=== PATIENT | female | born 1980 | race American Indian/Alaskan Native ===

== ENCOUNTER 2018-10-09 18:55 | Emergency (ER) | payer BC ==
[2018-10-09 19:25] VITALS: BP 146/56
--- NOTE | 2018-10-09 19:25 | Event Note ---
ED Screening Note Date of service: 10/09/18 Time: 19:24 ED Screening Note: headaches and nausea times yesterday. Feels like pressure and throbbing. This initial assessment/diagnostic orders/clinical plan/treatment(s) is/are subject to change based on patients health status, clinical progression and re- assessment by fellow clinical providers in the ED. Further treatment and workup at subsequent clinical providers discretion. Patient/guardian urged not to elope from the ED as their condition may be serious if not clinically assessed and managed. Initial orders include:
[2018-10-09] MEDS ORDERED: ZOFRAN ODT PO ONE (20:46)
[2018-10-09] MEDS ORDERED: TORADOL IM ONE (20:46)
[2018-10-09] MEDS ORDERED: FIORICET PO ONE (20:46)
[2018-10-09] MEDS ORDERED: AUGMENTIN 875 MG PO ONE (20:47)
--- NOTE | 2018-10-09 21:19 | Emergency Department Report ---
ED Headache HPI - General Chief Complaint: Headache Stated Complaint: NAUSEA/HEADACHES Time Seen by Provider: 10/09/18 19:24 Source: patient, family Exam Limitations: no limitations - History of Present Illness Initial Comments: Patient is a 19-wifm[place] female with a history of HTN, chronic headaches and recurrent sinus infections presents to the ED with acute onset was a sense of ear frontal pressure and headache with nausea and vomiting for the last 24 hours. Patient also complains of lightheadedness. Patient states that the pain is worse whenever she is ambulating or upright. Patient denies dizziness, chest pain, shortness of breath, fever, chills, sore throat, abdominal pain, change in vision, neck pain, cough, loss of consciousness or syncope and seizures. Timing/Duration: 24 hours, waxing and waning Quality: severe, pressure, sharp, throbbing Head Injury Location: frontal Recent Head Trauma: no recent headache/trauma Associated Symptoms: denies symptoms, facial pain, nausea/vomiting, nasal congestion, sinus infection. denies: confusion, fatigue, fever/chills, flushing, loss of consciousness, nasal drainage, numbness in legs/feet, seizures, stiff neck, vision changes, weakness Allergies/Adverse Reactions: Allergies No Known Allergies Allergy (Unverified 10/09/18 19:22) Home Medications: Ambulatory Orders Amoxicillin/Potassium Clav [Augmentin 875-125 Tablet] 1 each PO Q12H #20 tablet 10/09/18 Butalb/Acetamin/Caff 50-325-40 [Fioricet 50-325-40] 1 tab PO Q6HR PRN #15 tab 10/09/18 Cetirizine HCl [Zyrtec 10mg tab] 10 mg PO DAILY #30 tablet 10/09/18 Ketorolac [Toradol] 10 mg PO Q6H PRN #20 tablet 10/09/18 Ondansetron [Zofran Odt] 4 mg PO Q8HR #15 tab.rapdis 10/09/18 ED Review of Systems ROS: Stated complaint: NAUSEA/HEADACHES Other details as noted in HPI Constitutional: denies: chills, fever Eyes: denies: eye pain, eye discharge, vision change ENT: congestion, other (frontal sinus pressure). denies: ear pain, throat pain Respiratory: no symptoms reported. denies: cough, orthopnea, shortness of breath, SOB with exertion, SOB at rest, wheezing Cardiovascular: denies: chest pain, palpitations Endocrine: no symptoms reported Gastrointestinal: nausea, vomiting. denies: abdominal pain, diarrhea Genitourinary: denies: urgency, dysuria, discharge Musculoskeletal: denies: back pain, joint swelling, arthralgia Skin: denies: rash, lesions Neurological: headache. denies: weakness, paresthesias Psychiatric: denies: anxiety, depression Hematological/Lymphatic: denies: easy bleeding, easy bruising ED Past Medical Hx - Past Medical History Previous Medical History?: Yes Hx Hypertension: Yes Additional medical history: fybromyalgia - Surgical History Hx Cholecystectomy: Yes Additional Surgical History: , breast reduction - Social History Smoking Status: Never Smoker Substance Use Type: None - Medications Home Medications: Home Medications Medication Instructions Recorded Confirmed Last Taken Type Amoxicillin/Potassium Clav 1 each PO Q12H #20 tablet 10/09/18 Unknown Rx [Augmentin 875-125 Tablet] Butalb/Acetamin/Caff 50-325-40 1 tab PO Q6HR PRN #15 tab 10/09/18 Unknown Rx [Fioricet 50-325-40] Cetirizine HCl [Zyrtec 10mg tab] 10 mg PO DAILY #30 tablet 10/09/18 Unknown Rx Ketorolac [Toradol] 10 mg PO Q6H PRN #20 tablet 10/09/18 Unknown Rx Ondansetron [Zofran Odt] 4 mg PO Q8HR #15 tab.rapdis 10/09/18 Unknown Rx ED Physical Exam - General Limitations: No Limitations General appearance: alert, in no apparent distress - Head Head exam: Present: atraumatic, normocephalic, normal inspection - Eye Eye exam: Present: normal appearance, PERRL, EOMI. Absent: scleral icterus, conjunctival injection, periorbital swelling, periorbital tenderness Pupils: Present: normal accommodation - ENT ENT exam: Present: normal exam, normal orophraynx, mucous membranes moist, TM's normal bilaterally, normal external ear exam, other (Frontal and maxillary sinus pressure and tenderness; grossly congested nasal passages) - Neck Neck exam: Present: normal inspection, full ROM. Absent: tenderness, meningismus, lymphadenopathy - Respiratory Respiratory exam: Present: normal lung sounds bilaterally. Absent: respiratory distress, wheezes, rales, rhonchi, chest wall tenderness, accessory muscle use, decreased breath sounds, prolonged expiratory - Cardiovascular Cardiovascular Exam: Present: regular rate, normal rhythm, normal heart sounds. Absent: systolic murmur, diastolic murmur, rubs, gallop - GI/Abdominal GI/Abdominal exam: Present: soft, normal bowel sounds. Absent: tenderness, guarding, rebound, hyperactive bowel sounds, hypoactive bowel sounds, organomegaly, pulsatile mass, hernia - Rectal Rectal exam: Present: deferred - Extremities Exam Extremities exam: Present: normal inspection, full ROM, normal capillary refill - Back Exam Back exam: Present: normal inspection, full ROM. Absent: tenderness, CVA tenderness (R), CVA tenderness (L), muscle spasm, paraspinal tenderness, vertebral tenderness - Neurological Exam Neurological exam: Present: alert, oriented X3, CN II-XII intact, normal gait, reflexes normal - Psychiatric Psychiatric exam: Present: normal affect, normal mood - Skin Skin exam: Present: warm, dry, intact, normal color. Absent: rash ED Course Vital Signs 10/09/18 10/09/18 19:22 21:05 Temperature 98.1 F Pulse Rate 83 Respiratory 18 16 Rate Blood Pressure 146/56 O2 Sat by Pulse 100 Oximetry - Reevaluation(s) Reevaluation #1: 10/09/18 21:28 This is a 38 year-old female who presented to the ED with persistent frontal sinus headache. In the ED, the patient is alert and oriented 3 and is not in distress. Patient was treated for headache and also given initial oral antibiotic for acute frontal and maxillary sinusitis. On reevaluation, patient's pain is well-controlled with medications, and was discharged home on medications and advised to follow-up with her primary care physician in 5-7 days for reevaluation. Patient was advised to return to the ED immediately if symptoms get worse. ED Medical Decision Making - Medical Decision Making This is a 38 year-old female who presented to the ED with persistent frontal sinus headache. In the ED, the patient is alert and oriented 3 and is not in distress. Patient was treated for headache and also given initial oral antibiotic for acute frontal and maxillary sinusitis. On reevaluation, patient's pain is well-controlled with medications, and was discharged home on medications and advised to follow-up with her primary care physician in 5-7 days for reevaluation. Patient was advised to return to the ED immediately if symptoms get worse. - Differential Diagnosis sinus headache, chronic sinusitis, migraine headache, acute URI Critical care attestation.: If time is entered above; I have spent that time in minutes in the direct care of this critically ill patient, excluding procedure time. ED Disposition Clinical Impression: Sinus headache, Acute recurrent maxillary sinusitis Chronic headache Qualifiers: Headache type: tension-type Intractability: not intractable Qualified Code(s): G44.229 - Chronic tension-type headache, not intractable Disposition: DC-01 TO HOME OR SELFCARE Is pt being admited?: No Does the pt Need Aspirin: No Condition: Stable Instructions: Acute Headache (ED), Acute Bacterial Rhinosinusitis (ED), Sinusitis (ED) Additional Instructions: Take medications with food, drink plenty of fluids and follow up with your primary care physician in 5-7 days for reevaluation. Return to the emergency department immediately for further evaluation if symptoms get worse. Prescriptions: Amoxicillin/Potassium Clav [Augmentin 875-125 Tablet] 1 each PO Q12H #20 tablet Butalb/Acetamin/Caff 50-325-40 [Fioricet 50-325-40] 1 tab PO Q6HR PRN #15 tab PRN Reason: Headache Ketorolac [Toradol] 10 mg PO Q6H PRN #20 tablet PRN Reason: Pain Ondansetron [Zofran Odt] 4 mg PO Q8HR #15 tab.rapdis Cetirizine HCl [Zyrtec 10mg tab] 10 mg PO DAILY #30 tablet Referrals: [facility] [Outside] - 3-5 Days Time of Disposition: 21:25 Print Language: MALAY
== END 2018-10-09 21:37 | disposition home or self-care (01) ==
LOC: ED 18:55
DX: J01.01 Acute recurrent maxillary sinusitis (principal); I10 Essential (primary) hypertension; Z79.899 Other long term (current) drug therapy; Z98.890 Other specified postprocedural states
CPT/HCPCS: 96372; 99282; J1885; Q0162

== ENCOUNTER 2018-10-12 22:12 | Emergency (ER) | payer BC ==
[2018-10-12 22:54] VITALS: BP 140/87
[2018-10-12] MEDS ORDERED: NORCO 5/325 PO ONE (23:54)
[2018-10-13] MEDS ORDERED: IBUPROFEN ONE (00:14)
[2018-10-13] MEDS ORDERED: XYLOCAINE 2% INFILTRATI ONE ×3 (00:14→00:18)
[2018-10-13] MEDS ORDERED: XYLOCAINE TOPICAL 4% TP ONE ×2 (00:19→00:21)
[2018-10-13] MEDS ORDERED: IBUPROFEN PO ONE (00:20)
--- NOTE | 2018-10-13 01:07 | Cat Scan Report ---
Head CT without intravenous contrast INDICATION: Headache COMPARISON: None FINDINGS: The ventricles are normal in size and position. No hemorrhage or extra-axial fluid collecti on. No edema or mass effect. No focal infarct seen. Portions of the sinuses visualized are clear. No skull fracture identified. IMPRESSION: Negative head CT Automated exposure control was utilized to diminish radiation dose Signer Name: Charles Coe MD Signed: 10/13/2018 1:02 AM Workstation Name: [id number]
--- NOTE | 2018-10-13 01:26 | Emergency Department Report ---
ED Headache HPI - General Chief Complaint: Headache Stated Complaint: HEADACHE, LT CHURCH PRESSURE, NAUSEA Time Seen by Provider: 10/12/18 23:53 - History of Present Illness Initial Comments: Patient return for continued headaches DynaCirc headaches 2 days ago treated with Fioricet and cetirizine Augmentin for sinusitis states final headache continues patient pending follow-up with neurology there is no fever no chills headache is 14 and left frontal symptoms are exacerbated by movement and activity symptoms are relieved by nothing . Patient nonadherent with medication regimen and follow-up advises that Fioricet is not working Timing/Duration: 1 week Quality: moderate Head Injury Location: frontal Recent Head Trauma: frequent headaches Modifying Factors: improves with: movement Associated Symptoms: sinus infection. denies: nausea/vomiting, nasal congestion, nasal drainage, numbness in legs/feet, stiff neck, vision changes, weakness Allergies/Adverse Reactions: Allergies No Known Allergies Allergy (Unverified 10/09/18 19:22) Home Medications: Ambulatory Orders Amoxicillin/Potassium Clav [Augmentin 875-125 Tablet] 1 each PO Q12H #20 tablet 10/09/18 Butalb/Acetamin/Caff 50-325-40 [Fioricet 50-325-40] 1 tab PO Q6HR PRN #15 tab 10/09/18 Ketorolac [Toradol] 10 mg PO Q6H PRN #20 tablet 10/09/18 Acetaminophen [Acetaminophen TAB] 1,000 mg PO Q6HR PRN #30 tablet 10/13/18 Metoclopramide [Reglan] 10 mg PO Q6H PRN #30 tablet 10/13/18 Oxymetazoline 0.05% [Vicks Sinex] 2 spray NS BID #1 bottle 10/13/18 diphenhydrAMINE [Benadryl CAP] 25 mg PO Q6HR PRN #30 capsule 10/13/18 ED Review of Systems ROS: Stated complaint: HEADACHE, LT CHURCH PRESSURE, NAUSEA Other details as noted in HPI Constitutional: denies: chills, fever Eyes: denies: eye pain, eye discharge, vision change ENT: congestion. denies: ear pain, throat pain, dental pain, hearing loss, epistaxis Respiratory: denies: cough, shortness of breath, wheezing Cardiovascular: denies: chest pain, palpitations Endocrine: no symptoms reported Gastrointestinal: as per HPI Genitourinary: denies: urgency, dysuria, discharge Musculoskeletal: denies: back pain, joint swelling, arthralgia Skin: denies: rash, lesions Neurological: headache. denies: weakness, numbness, paresthesias, confusion, abnormal gait, vertigo Psychiatric: denies: anxiety, depression Hematological/Lymphatic: denies: easy bleeding, easy bruising ED Past Medical Hx - Past Medical History Previous Medical History?: Yes Hx Hypertension: Yes Additional medical history: fybromyalgia - Surgical History Past Surgical History?: Yes Hx Cholecystectomy: Yes Additional Surgical History: , breast reduction - Social History Smoking Status: Never Smoker Substance Use Type: None - Medications Home Medications: Home Medications Medication Instructions Recorded Confirmed Last Taken Type Amoxicillin/Potassium Clav 1 each PO Q12H #20 tablet 10/09/18 Unknown Rx [Augmentin 875-125 Tablet] Butalb/Acetamin/Caff 50-325-40 1 tab PO Q6HR PRN #15 tab 10/09/18 Unknown Rx [Fioricet 50-325-40] Ketorolac [Toradol] 10 mg PO Q6H PRN #20 tablet 10/09/18 Unknown Rx Acetaminophen [Acetaminophen TAB] 1,000 mg PO Q6HR PRN #30 tablet 10/13/18 Unknown Rx Metoclopramide [Reglan] 10 mg PO Q6H PRN #30 tablet 10/13/18 Unknown Rx Oxymetazoline 0.05% [Vicks Sinex] 2 spray NS BID #1 bottle 10/13/18 Unknown Rx diphenhydrAMINE [Benadryl CAP] 25 mg PO Q6HR PRN #30 capsule 10/13/18 Unknown Rx ED Physical Exam - General Limitations: No Limitations General appearance: alert, in no apparent distress - Head Head exam: Present: normocephalic, normal inspection - Eye Eye exam: Present: normal appearance, PERRL, EOMI. Absent: conjunctival injection, nystagmus Pupils: Present: normal accommodation - ENT ENT exam: Present: normal orophraynx, mucous membranes moist, TM's normal bilaterally, normal external ear exam, other (bilat frontal sinus pain to palpation ) - Neck Neck exam: Present: normal inspection, full ROM. Absent: tenderness, meningismus, lymphadenopathy, thyromegaly - Respiratory Respiratory exam: Present: normal lung sounds bilaterally. Absent: respiratory distress, wheezes, stridor, chest wall tenderness - Cardiovascular Cardiovascular Exam: Present: regular rate, normal rhythm, normal heart sounds. Absent: systolic murmur, diastolic murmur, rubs, gallop - GI/Abdominal GI/Abdominal exam: Present: soft, normal bowel sounds. Absent: distended, tenderness, mass, hernia - Rectal Rectal exam: Present: deferred - Extremities Exam Extremities exam: Present: normal inspection, full ROM, normal capillary refill. Absent: tenderness, pedal edema, joint swelling, calf tenderness - Back Exam Back exam: Present: normal inspection, full ROM. Absent: tenderness, CVA tenderness (R), CVA tenderness (L), muscle spasm, paraspinal tenderness, verteb ral tenderness, rash noted - Neurological Exam Neurological exam: Present: alert, oriented X3, CN II-XII intact, normal gait, reflexes normal. Absent: motor sensory deficit - Expanded Neurological Exam Expanded Patient oriented to: Present: person, place, time Speech: Present: fluid speech Cranial nerves: EOM's Intact: Normal, Gag Reflex: Normal, Tongue Deviation: Normal, Nystagmus: Normal, Facial Sensation: Normal, Facial Palsy with Forehead Movement: Normal Cerebellar function: Finger to Nose: Normal, Heel to Robb: Normal, Romberg: Normal Upper motor neuron: Devonte Neglect: Normal, Pronator Drift: Normal, Babinski Sign: Normal, Sensory Extinction: Normal Motor strength exam: RUE: 5, LUE: 5, RLE: 5, LLE: 5 DTR: bicep (R): 2+, bicep (L): 2+, ankle (R): 2+, ankle (L): 2+ Best Eye Response (Eland): (4) open spontaneously Best Motor Response (Greg): (6) obeys commands Best Verbal Response (Greg): (5) oriented Greg Total: 15 - Psychiatric Psychiatric exam: Present: normal affect, normal mood - Skin Skin exam: Present: warm, dry, intact, normal color. Absent: rash ED Course Vital Signs 10/12/18 22:51 Temperature 98.5 F Pulse Rate 95 H Respiratory 14 Rate Blood Pressure 140/87 O2 Sat by Pulse 100 Oximetry ED Medical Decision Making - Radiology Data Radiology results: report reviewed, image reviewed Ordering Physician: TWYLA TRUJILLO NP Date of Service: 10/12/18 Procedure(s): CT head/brain wo con Accession Number(s): [id number] cc: TWYLA TRUJILLO NP Head CT without intravenous contrast INDICATION: Headache COMPARISON: None FINDINGS: The ventricles are normal in size and position. No hemorrhage or extra-axial fluid collection. No edema or mass effect. No focal infarct seen. Portions of the sinuses visualized are clear. No skull fracture identified. IMPRESSION: Negative head CT Automated exposure control was utilized to diminish radiation dose Signer Name: Charles Coe MD Signed: 10/13/2018 1:02 AM Workstation Name: [id number] Transcribed By: NANETTE Dictated By: Charles Coe MD Electronically Authenticated By: Charles Coe MD Signed Date/Time: 10/13/18101 DD/ TD/TT: - Medical Decision Making CT scan is normal this is a sinus headache and Afrin nasal spray Decadron by mouth Benadryl and Reglan patient will follow up with neurology in 2-3 days patient verbalized agreement and understanding of discharge plan DC'd home in stable condition at this time Critical care attestation.: If time is entered above; I have spent that time in minutes in the direct care of this critically ill patient, excluding procedure time. ED Disposition Clinical Impression: Headache Qualifiers: Headache type: unspecified Headache chronicity pattern: acute headache Intractability: intractable Qualified Code(s): R51 - Headache Disposition: DC-01 TO HOME OR SELFCARE Is pt being admited?: No Does the pt Need Aspirin: No Condition: Stable Instructions: Acute Headache (ED) Prescriptions: Acetaminophen [Acetaminophen TAB] 1,000 mg PO Q6HR PRN #30 tablet PRN Reason: Headache diphenhydrAMINE [Benadryl CAP] 25 mg PO Q6HR PRN #30 capsule PRN Reason: headache Metoclopramide [Reglan] 10 mg PO Q6H PRN #30 tablet PRN Reason: Headache Oxymetazoline 0.05% [Vicks Sinex] 2 spray NS BID #1 bottle Referrals: TYRELL TERAN MD [Referring] - 3-5 Days Forms: Work/School Release Form(ED) Time of Disposition: 01:34
== END 2018-10-13 02:00 | disposition home or self-care (01) ==
LOC: ED 22:12
DX: R51 Headache (principal); I10 Essential (primary) hypertension; Z90.49 Acquired absence of other specified parts of digestive tract; Z98.890 Other specified postprocedural states; Z79.899 Other long term (current) drug therapy
CPT/HCPCS: 70450; 99283

== ENCOUNTER 2018-12-26 14:29 | Emergency (ER) | payer BC ==
[2018-12-26 14:49] VITALS: BP 138/77
[2018-12-26] MEDS ORDERED: ASPIRIN PO ONE (14:50)
--- NOTE | 2018-12-26 14:52 | Event Note ---
ED Screening Note Date of service: 12/26/18 Time: 14:49 ED Screening Note: This is a 38 y.o. F. that presents to the ER with chest pain radiating to RUE since waking this morning. Reports pain as intermitting sharp pain. Denies fever, chills, cough, palpitations LMP 12/04/2018 This initial assessment/diagnostic orders/clinical plan/treatment(s) is/are subject to change based on patients health status, clinical progression and re- assessment by fellow clinical providers in the ED. Further treatment and workup at subsequent clinical providers discretion. Patient/guardian urged not to elope from the ED as their condition may be serious if not clinically assessed and managed. Initial orders include: Labs, ekg, & cxr
[2018-12-26 15:59] LABS: Basophils % (Auto) 0.7 % (0.0-1.8); Eosinophils # (Auto) 0.2 K/mm3 (0.0-0.4); Hematocrit 36.2 % (30.3-42.9); Hemoglobin 11.8 gm/dl (10.1-14.3); Lymphocytes # (Auto) 2.5 K/mm3 (1.2-5.4); Lymphocytes % (Auto) 39.4 % (13.4-35.0); Mean Corpuscular HGB Conc 33 % (30-34); Mean Corpuscular Volume 90 fl (79-97); Monocytes # (Auto) 0.4 K/mm3 (0.0-0.8); Platelet Count 382 K/mm3 (140-440); Red Blood Count 4.03 M/mm3 (3.65-5.03); Red Cell Distribution Width 14.9 % (13.2-15.2)
--- NOTE | 2018-12-26 16:12 | XRay Report ---
CHEST 2 VIEWS INDICATION: Left-sided chest pain. COMPARISON: 11/26/2018 FINDINGS: Support devices: None. Heart: Within normal limits. Lungs/pleura: No acute air space or interstitial disease. No pneumothorax. Additional findings: None. IMPRESSION: No acute findings. Signer Name: Danie Duncan Jr, MD Signed: 12/26/2018 4:07 PM Workstation Name: [id number]
[2018-12-26 16:13] LABS: BUN/Creatinine Ratio 11; Blood Urea Nitrogen 9 mg/dL (7-17); Calcium 10.4 mg/dL (8.4-10.2); Hemolysis Index 4
== END 2018-12-26 21:46 | disposition left against medical advice (07) ==
LOC: ED 14:29
DX: R07.89 Other chest pain (principal); Z53.21 Procedure and treatment not carried out due to patient leaving prior to being seen by health care provider
CPT/HCPCS: 36415; 71046; 80048; 84484; 85025; 93005; 93010

== ENCOUNTER 2019-05-16 11:32 | Outpatient (CLI) | payer BC ==
--- NOTE | 2019-05-16 12:54 | XRay Report ---
CERVICAL SPINE HISTORY: Neck pain. COMPARISON: None. TECHNIQUE: 5 views of the cervical spine obtained. FINDINGS: Vertebrae: Normal alignment. No fracture or significant abnormality. Disc Spaces:Multilevel disc space narrowing and osteophytosis. Disc disease with minimal narrowing of the disc space and moderate-sized right anterior osteophytes from C4-5 through C6-7. Facet Joints:No significant abnormality. Prevertebral Soft Tissues:No significant abnormality. Additional findings: The neural foramina are widely patent on oblique views. IMPRESSION: 1. Mild degenerative disc disease with right-sided osteophytes from C4-5 through C6-7. 2. No facet joint arthropathy and no neural foraminal narrowing. Signer Name: Gulshan Hutson MD Signed: 05/16/2019 12:49 PM Workstation Name: [id number]
== END 2019-05-16 11:33 | disposition home or self-care (01) ==
LOC: XRAY 11:32
PROVIDERS: ATTEND Orthopaedic Surgery
DX: M50.323 Other cervical disc degeneration at C6-C7 level (principal); M48.02 Spinal stenosis, cervical region
CPT/HCPCS: 72050

== ENCOUNTER 2019-05-22 17:59 | Emergency (ER) | payer BC ==
[2019-05-22 18:16] VITALS: BP 130/85
--- NOTE | 2019-05-22 18:49 | Emergency Department Report ---
Blank Doc - Documentation Documentation: 38-year-old female that presents with URI symptoms and fever with tachycardia. This initial assessment/diagnostic orders/clinical plan/treatment(s) is/are subject to change based on patient's health status, clinical progression and re- assessment by fellow clinical providers in the ED. Further treatment and workup at subsequent clinical providers discretion. Patient/guardians urged not to elope from the ED as their condition may be serious if not clinically assessed and managed. Initial orders include: 1- Patient sent to [facility] for further evaluation and treatment 2- CXR 3- flu swab
--- NOTE | 2019-05-22 19:23 | XRay Report ---
CHEST 2 VIEWS INDICATION / CLINICAL INFORMATION: MAIN: cough; HEADACHE, EAR ACHE, BODY ACHE, CONGESTION, SNEEZING, WELL HOT AND COLD X 4 DAYS . COMPARISON: None available. FINDINGS: SUPPORT DEVICES: None. HEART / MEDIASTINUM: No significant abnormality. LUNGS / PLEURA: No significant pulmonary or pleural abnormality. No pneumothorax. ADDITIONAL FINDINGS: No significant additional findings. IMPRESSION: 1. No acute findings. Signer Name: Charles Coe MD Signed: 05/22/2019 7:18 PM Workstation Name: [id number]
--- NOTE | 2019-05-22 21:04 | Emergency Department Report ---
Minor Respiratory - HPI Chief Complaint: Upper Respiratory Infection Stated Complaint: COUGH/CONGESTED/BODY ACHES/HOT AND COLD Time Seen by Provider: 05/22/19 18:50 Duration: 3 Days Pain Location: Nose, Ear (Left) Severity: mild Minor Respiratory: Yes Rhinorrhea, Yes Able to Tolerate Fluids, Yes Ear Pain (Left ear), Yes Cough, Yes Sick Contacts, Yes Fever, No Sore Throat, No Hemoptysis, No Chest Pain, No Shortness of Breath Other History: This is a 38-year-old -Niue[place] female who presents with cough, headache, left otalgia, and chills for 3 days. Patient states she has increased fluid intake and taking vitamin C with minimal improvement of symptoms. Past medical history of hypertension and fibromyalgia. States she tried to find Coricidin and unsuccessful. Denies chest pain, shortness of breath, wheezing, nausea or vomiting, abdominal pain, or diarrhea. ED Review of Systems ROS: Stated complaint: COUGH/CONGESTED/BODY ACHES/HOT AND COLD Other details as noted in HPI Constitutional: denies: chills, fever ENT: ear pain (Left), congestion. denies: throat pain Respiratory: cough. denies: shortness of breath, wheezing Cardiovascular: denies: chest pain, palpitations Endocrine: no symptoms reported Gastrointestinal: denies: abdominal pain, nausea, diarrhea Musculoskeletal: denies: back pain, joint swelling, arthralgia Skin: denies: rash, lesions Neurological: headache. denies: weakness, paresthesias Psychiatric: denies: anxiety, depression ED Past Medical Hx - Past Medical History Previous Medical History?: Yes Hx Hypertension: Yes Additional medical history: fybromyalgia - Surgical History Hx Cholecystectomy: Yes Additional Surgical History: , breast reduction - Social History Smoking Status: Never Smoker Substance Use Type: None - Medications Home Medications: Home Medications Medication Instructions Recorded Confirmed Last Taken Type Amoxicillin/Potassium Clav 1 each PO Q12H #20 tablet 10/09/18 Unknown Rx [Augmentin 875-125 Tablet] Butalb/Acetamin/Caff 50-325-40 1 tab PO Q6HR PRN #15 tab 10/09/18 Unknown Rx [Fioricet 50-325-40] Ketorolac [Toradol] 10 mg PO Q6H PRN #20 tablet 10/09/18 Unknown Rx Acetaminophen [Acetaminophen TAB] 1,000 mg PO Q6HR PRN #30 tablet 10/13/18 Unknown Rx Metoclopramide [Reglan] 10 mg PO Q6H PRN #30 tablet 10/13/18 Unknown Rx Oxymetazoline 0.05% [Vicks Sinex] 2 spray NS BID #1 bottle 10/13/18 Unknown Rx diphenhydrAMINE [Benadryl CAP] 25 mg PO Q6HR PRN #30 capsule 10/13/18 Unknown Rx Famotidine [Pepcid] 40 mg PO QHS #10 tablet 11/26/18 Unknown Rx Ondansetron [Zofran Odt] 4 mg PO Q8HR #10 tab.rapdis 11/26/18 Unknown Rx traMADoL [Ultram] 50 mg PO Q6HR PRN #12 tablet 11/26/18 Unknown Rx Amoxicillin/Potassium Clav 1 each PO BID #10 tablet 05/22/19 Unknown Rx [Augmentin 875-125 Tablet] Fluticasone [Flonase] 1 spray NS QDAY #1 bottle 05/22/19 Unknown Rx Minor Respiratory Exam - Exam General: Vital signs noted. No distress. Alert and acting appropriately. HEENT: Yes Pharyngeal Erythema (Erythematous posterior pharynx, uvula midline), Yes Moist Mucous Membranes, Yes Rhinorrhea (Turbinates congested with clear discharge), Yes Maxillary Tenderness, No Pharyngeal Exudates, No Conjuctival Injection, No Frontal Tenderness Ear: Neither TM Bulge, Neither TM Erythema, Neither EAC Pain, Neither EAC Discharge Neck: Yes Supple, No Adenopathy Lungs: Yes Good Air Exchange, Yes Cough, No Wheezes, No Ronchi, No Stridor, No Labored Respirations, No Retractions, No Use of Accessory Muscles, No Other Abnormal Lung Sounds Heart: Yes Regular, No Murmur Abdomen: Yes Normal Bowel Sounds, No Tenderness, No Peritoneal Signs Skin: No Rash, No Edema Neurologic: Alert and oriented, no deficits. Musculoskeletal: Unremarkable. ED Course Vital Signs 05/22/19 18:14 Temperature 100.0 F H Pulse Rate 104 H Respiratory 20 Rate Blood Pressure 130/85 [Left] O2 Sat by Pulse 94 Oximetry Vital Signs 05/22/19 05/22/19 18:14 21:18 Temperature 100.0 F H 98.4 F Pulse Rate 104 H 89 Respiratory 20 17 Rate Blood Pressure 130/85 [Left] O2 Sat by Pulse 94 100 Oximetry ED Medical Decision Making - Radiology Data Radiology results: report reviewed CHEST 2 VIEWS INDICATION / CLINICAL INFORMATION: MAIN: cough; HEADACHE, EAR ACHE, BODY ACHE, CONGESTION, SNEEZING, WELL HOT AND COLD X 4 DAYS . COMPARISON: None available. FINDINGS: SUPPORT DEVICES: None. HEART / MEDIASTINUM: No significant abnormality. LUNGS / PLEURA: No significant pulmonary or pleural abnormality. No pneumothorax. ADDITIONAL FINDINGS: No significant additional findings. IMPRESSION: 1. No acute findings. - Medical Decision Making 38 y.o. female that presents with URI symptoms for 1 week. Past medical history of hypertension and fibromyalgia. No distress noted. Mild congestion, cough, and maxillary tenderness on exam. Chest x-ray was ordered with no acute cardiopulmonary findings. Patient is otherwise healthy patient with symptoms of acute sinusitis. She denies shortness of breath, chest pain, weakness, or fever. No vocal changes or uvula deviation to be concern for BURR BENCH HAND. There is low suspicion of influenza, pneumonia, or strep throat. Labs are deferred at this time. There are no indications for antibiotics at this time. Will start Augmentin and Flonase. Instructed to continue increased fluid intake and wash hands frequently. Discharged home stable with strict return instructions. Follow up with Primary Care Provider in 2-3 days. Return to work tomorrow. Critical care attestation.: If time is entered above; I have spent that time in minutes in the direct care of this critically ill patient, excluding procedure time. ED Disposition Clinical Impression: Cough headache, Otalgia of left ear Sinusitis Qualifiers: Sinusitis location: maxillary Chronicity: acute Recurrence: non-recurrent Qualified Code(s): J01.00 - Acute maxillary sinusitis, unspecified Disposition: DC- TO HOME OR SELFCARE Is pt being admited?: No Condition: Stable Instructions: Sinusitis (ED) Additional Instructions: Use warm moist compresses over sinuses. Use ibuprofen or Tylenol for pain. Use nasal saline spray. Avoid taking antihistamines. Follow up with Primary Care Provider if fever, short of breath, chest pain, or symptoms do not improve as discussed. Prescriptions: Amoxicillin/Potassium Clav [Augmentin 875-125 Tablet] 1 each PO BID #10 tablet Fluticasone [Flonase] 1 spray NS QDAY #1 bottle Referrals: [facility] [Provider Group] - 3-5 Days FRANSISCO DECKER MD [Staff Physician] - 3-5 Days ALEX ANTONIO MD [Staff Physician] - 3-5 Days Forms: Work/School Release Form(ED) Time of Disposition: 21:07
== END 2019-05-22 21:18 | disposition home or self-care (01) ==
LOC: ED 17:59
DX: J01.00 Acute maxillary sinusitis, unspecified (principal); H92.02 Otalgia, left ear; I10 Essential (primary) hypertension; Z90.49 Acquired absence of other specified parts of digestive tract; Z98.890 Other specified postprocedural states; Z79.899 Other long term (current) drug therapy
CPT/HCPCS: 71046

== ENCOUNTER 2019-05-30 21:44 | Emergency (ER) | payer BC ==
--- NOTE | 2019-05-30 22:07 | Emergency Department Report ---
Blank Doc - Documentation Documentation: 38-year-old female that presents with fever/ chills, cough, and tachycardia. J ust came back from [place]. This initial assessment/diagnostic orders/clinical plan/treatment(s) is/are subject to change based on patient's health status, clinical progression and re- assessment by fellow clinical providers in the ED. Further treatment and workup at subsequent clinical providers discretion. Patient/guardians urged not to elope from the ED as their condition may be serious if not clinically assessed and managed. Initial orders include: 1- Patient sent to [facility] for further evaluation and treatment 2- iso room needed 3- CXR 4- labs 5-- flu
[2019-05-30] MEDS ORDERED: ACETAMINOPHEN 325 MG TAB PO ONE (23:52)
--- NOTE | 2019-05-31 00:02 | Emergency Department Report ---
- General Chief Complaint: Upper Respiratory Infection Stated Complaint: SHORTNESS OF BREATH, COUGH, CP Time Seen by Provider: 05/30/19 22:05 Source: patient Mode of arrival: Ambulatory Limitations: No Limitations - History of Present Illness Initial Comments: Patient is a 38-year-old F I[place]ian female who is presenting with a dry cough for the past 2 days. Patient states she feels a pressure and tightness in her chest when she breathes. She has been feeling poorly for the last 2 days. Her primary care physician prescribed some cough medicine today but she states it did not help. She states she has had off-and-on fevers. Patient had one episode of diarrhea yesterday but no persistent diarrhea or nausea vomiting. Patient does complain of some runny nose and shortness of breath. Patient does have a history of recent travel to [facility]. Patient returned on 05/05. - Related Data Previous Rx's Medication Instructions Recorded Last Taken Type Amoxicillin/Potassium Clav 1 each PO Q12H #20 tablet 10/09/18 Unknown Rx [Augmentin 875-125 Tablet] Butalb/Acetamin/Caff 50-325-40 1 tab PO Q6HR PRN #15 tab 10/09/18 Unknown Rx [Fioricet 50-325-40] Ketorolac [Toradol] 10 mg PO Q6H PRN #20 tablet 10/09/18 Unknown Rx Acetaminophen [Acetaminophen TAB] 1,000 mg PO Q6HR PRN #30 tablet 10/13/18 Unknown Rx Metoclopramide [Reglan] 10 mg PO Q6H PRN #30 tablet 10/13/18 Unknown Rx Oxymetazoline 0.05% [Vicks Sinex] 2 spray NS BID #1 bottle 10/13/18 Unknown Rx diphenhydrAMINE [Benadryl CAP] 25 mg PO Q6HR PRN #30 capsule 10/13/18 Unknown Rx Famotidine [Pepcid] 40 mg PO QHS #10 tablet 11/26/18 Unknown Rx Ondansetron [Zofran Odt] 4 mg PO Q8HR #10 tab.rapdis 11/26/18 Unknown Rx traMADoL [Ultram] 50 mg PO Q6HR PRN #12 tablet 11/26/18 Unknown Rx Amoxicillin/Potassium Clav 1 each PO BID #10 tablet 03/17/20 Unknown Rx [Augmentin 875-125 Tablet] Fluticasone [Flonase] 1 spray NS QDAY #1 bottle 05/22/19 Unknown Rx Albuterol INH(or & Nicu Only) 2 puff IH QID PRN #1 inhalation 05/31/19 Unknown Rx [ProAir HFA Inhaler] Benzonatate [Tessalon Perles] 100 mg PO Q8HR #10 capsule 05/31/19 Unknown Rx DOXYCYCLINE Hyclate [Vibramycin 100 mg PO Q12HR #14 capsule 05/31/19 Unknown Rx CAP] Allergies Allergy/AdvReac Type Severity Reaction Status Date / Time No Known Allergies Allergy Unverified 10/09/18 19:22 ED Review of Systems ROS: Stated complaint: SHORTNESS OF BREATH, COUGH, CP Other details as noted in HPI Comment: All other systems reviewed and negative ED Past Medical Hx - Past Medical History Previous Medical History?: Yes Hx Hypertension: Yes Additional medical history: fybromyalgia - Surgical History Past Surgical History?: Yes Hx Cholecystectomy: Yes Additional Surgical History: , breast reduction - Social History Smoking Status: Never Smoker Substance Use Type: None - Medications Home Medications: Home Medications Medication Instructions Recorded Confirmed Last Taken Type Amoxicillin/Potassium Clav 1 each PO Q12H #20 tablet 10/09/18 Unknown Rx [Augmentin 875-125 Tablet] Butalb/Acetamin/Caff 50-325-40 1 tab PO Q6HR PRN #15 tab 10/09/18 Unknown Rx [Fioricet 50-325-40] Ketorolac [Toradol] 10 mg PO Q6H PRN #20 tablet 10/09/18 Unknown Rx Acetaminophen [Acetaminophen TAB] 1,000 mg PO Q6HR PRN #30 tablet 10/13/18 Unknown Rx Metoclopramide [Reglan] 10 mg PO Q6H PRN #30 tablet 10/13/18 Unknown Rx Oxymetazoline 0.05% [Vicks Sinex] 2 spray NS BID #1 bottle 10/13/18 Unknown Rx diphenhydrAMINE [Benadryl CAP] 25 mg PO Q6HR PRN #30 capsule 10/13/18 Unknown Rx Famotidine [Pepcid] 40 mg PO QHS #10 tablet 11/26/18 Unknown Rx Ondansetron [Zofran Odt] 4 mg PO Q8HR #10 tab.rapdis 11/26/18 Unknown Rx traMADoL [Ultram] 50 mg PO Q6HR PRN #12 tablet 11/26/18 Unknown Rx Amoxicillin/Potassium Clav 1 each PO BID #10 tablet 05/22/19 Unknown Rx [Augmentin 875-125 Tablet] Fluticasone [Flonase] 1 spray NS QDAY #1 bottle 05/22/19 Unknown Rx Albuterol INH(or & Nicu Only) 2 puff IH QID PRN #1 inhalation 05/31/19 Unknown Rx [ProAir HFA Inhaler] Benzonatate [Tessalon Perles] 100 mg PO Q8HR #10 capsule 05/31/19 Unknown Rx DOXYCYCLINE Hyclate [Vibramycin 100 mg PO Q12HR #14 capsule 05/31/19 Unknown Rx CAP] ED Physical Exam - General Limitations: No Limitations General appearance: alert, in no apparent distress - Head Head exam: Present: atraumatic, normocephalic - Eye Eye exam: Present: normal appearance - ENT ENT exam: Present: normal orophraynx, mucous membranes moist - Neck Neck exam: Present: normal inspection, full ROM. Absent: meningismus - Respiratory Respiratory exam: Present: normal lung sounds bilaterally. Absent: respiratory distress, wheezes, rales, rhonchi - Cardiovascular Cardiovascular Exam: Present: normal rhythm, tachycardia. Absent: systolic murmur, diastolic murmur, rubs, gallop - GI/Abdominal GI/Abdominal exam: Present: soft, normal bowel sounds. Absent: distended, guarding, rebound - Extremities Exam Extremities exam: Present: normal inspection - Back Exam Back exam: Present: normal inspection - Neurological Exam Neurological exam: Present: alert, oriented X3 - Psychiatric Psychiatric exam: Present: normal affect, normal mood - Skin Skin exam: Present: warm, dry, intact, normal color. Absent: rash ED Course Vital Signs 05/30/19 05/31/19 22:06 00:07 Temperature 100 F H Pulse Rate 119 H Respiratory 20 18 Rate Blood Pressure 162/99 O2 Sat by Pulse 99 Oximetry - Reevaluation(s) Reevaluation #1: 05/31/19 01:11 Because of the risk of the patient having coronavirus patient was given a mask on arrival. Physical exam was done with me wearing a surgical mask eye shield and double glove. ED Medical Decision Making - Lab Data Result diagrams: 05/30/19 23:43 Lab Results 05/30/19 05/30/19 05/30/19 Range/Units 23:43 23:43 23:43 WBC 3.8 L (4.5-11.0) K/mm3 RBC 4.11 (3.65-5.03) M/mm3 Hgb 11.5 (10.1-14.3) gm/dl Hct 35.1 (30.3-42.9) % MCV 86 (79-97) fl MCH 28 (28-32) pg MCHC 33 (30-34) % RDW 15.5 H (13.2-15.2) % Plt Count 309 (140-440) K/mm3 Lymph % (Auto) 45.3 H (13.4-35.0) % [place] % (Auto) 11.2 H (0.0-7.3) % Eos % (Auto) 0.8 (0.0-4.3) % Baso % (Auto) 0.3 (0.0-1.8) % Lymph # 1.7 (1.2-5.4) K/mm3 [place] # 0.4 (0.0-0.8) K/mm3 Eos # 0.0 (0.0-0.4) K/mm3 Baso # 0.0 (0.0-0.1) K/mm3 Seg Neutrophils % 42.4 (40.0-70.0) % Seg Neutrophils # 1.6 L (1.8-7.7) K/mm3 Lactic Acid 0.80 (0.7-2.0) mmol/L HCG, Qual Negative (Negative) Influenza A (Rapid) (Negative) Influenza B (Rapid) (Negative) Group A Strep Rapid (Negative) 05/30/19 Range/Units Unknown WBC (4.5-11.0) K/mm3 RBC (3.65-5.03) M/mm3 Hgb (10.1-14.3) gm/dl Hct (30.3-42.9) % MCV (79-97) fl MCH (28-32) pg MCHC (30-34) % RDW (13.2-15.2) % Plt Count (140-440) K/mm3 Lymph % (Auto) (13.4-35.0) % [place] % (Auto) (0.0-7.3) % Eos % (Auto) (0.0-4.3) % Baso % (Auto) (0.0-1.8) % Lymph # (1.2-5.4) K/mm3 [place] # (0.0-0.8) K/mm3 Eos # (0.0-0.4) K/mm3 Baso # (0.0-0.1) K/mm3 Seg Neutrophils % (40.0-70.0) % Seg Neutrophils # (1.8-7.7) K/mm3 Lactic Acid (0.7-2.0) mmol/L HCG, Qual (Negative) Influenza A (Rapid) Negative (Negative) Influenza B (Rapid) Negative (Negative) Group A Strep Rapid Negative (Negative) - EKG Data -: EKG Interpreted by Nd EKG shows normal: sinus rhythm, axis, intervals, QRS complexes, ST-T waves Rate: tachycardia - Radiology Data [facility] [address] [place] [address] XRay Report Signed Patient: JOYCE ENAMORADO MR#: [id number] : 1980 Acct:[id number] Age/Sex: 38 / F ADM Date: 05/30/19 Loc: ED Attending Dr: Ordering Physician: ROBERTO BONILLA NP Date of Service: 05/30/19 Procedure(s): XR chest routine 2V Accession Number(s): [id number] cc: ROBERTO BONILLA NP Fluoro Time In Minutes: CHEST 2 VIEWS INDICATION / CLINICAL INFORMATION: cough. COMPARISON: 05/22/19 FINDINGS: SUPPORT DEVICES: None. HEART / MEDIASTINUM: No significant abnormality. LUNGS / PLEURA: New, subtle, patchy density in the posterior right lung base which could represent early infiltrate such as pneumonia. No pneumothorax. ADDITIONAL FINDINGS: No significant additional findings. IMPRESSION: 1. Possible right lung base pneumonia. Signer Name: Mignon Valentin MD Signed: 05/31/2019 1:24 AM Workstation Name: [id number] - Medical Decision Making Patient is a 38-year-old F [place]ian female who is presenting with fever cough shortness of breath and a right lower lobe infiltrate. Given the recent pandemic of coronavirus patient is worsened for coronavirus. Patient's white count is actually slightly low. Patient will be started on antibiotics and medication for symptomatic relief however patient also will be given information about coronavirus and told to self quarantine herself. The patient's information has been placed in the persons under investigation list. Patient does appear to be stable for discharge. Critical care attestation.: If time is entered above; I have spent that time in minutes in the direct care of this critically ill patient, excluding procedure time. ED Disposition Clinical Impression: Pneumonia Qualifiers: Pneumonia type: due to unspecified organism Laterality: right Lung location: lower lobe of lung Qualified Code(s): J18.9 - Pneumonia, unspecified organism Disposition: DC-01 TO HOME OR SELFCARE Is pt being admited?: No Does the pt Need Aspirin: No Condition: Stable Instructions: Bacterial Pneumonia (ED), COVID-19 Referrals: NEETU THOMAS MD [Staff Physician] - 3-5 Days Time of Disposition: 01:52
[2019-05-31 00:12] LABS: Basophils % (Auto) 0.3 % (0.0-1.8); Eosinophils % (Auto) 0.8 % (0.0-4.3); Hematocrit 35.1 % (30.3-42.9); Hemoglobin 11.5 gm/dl (10.1-14.3); Lymphocytes # (Auto) 1.7 K/mm3 (1.2-5.4); Lymphocytes % (Auto) 45.3 % (13.4-35.0); Mean Corpuscular HGB Conc 33 % (30-34); Mean Corpuscular Volume 86 fl (79-97); Monocytes # (Auto) 0.4 K/mm3 (0.0-0.8); Monocytes % (Auto) 11.2 % (0.0-7.3); Platelet Count 309 K/mm3 (140-440); Red Blood Count 4.11 M/mm3 (3.65-5.03); Red Cell Distribution Width 15.5 % (13.2-15.2)
--- NOTE | 2019-05-31 01:28 | XRay Report ---
CHEST 2 VIEWS INDICATION / CLINICAL INFORMATION: cough. COMPARISON: 05/22/19 FINDINGS: SUPPORT DEVICES: None. HEART / MEDIASTINUM: No significant abnormality. LUNGS / PLEURA: New, subtle, patchy density in the posterior right lung base which could represent ea rly infiltrate such as pneumonia. No pneumothorax. ADDITIONAL FINDINGS: No significant additional findings. IMPRESSION: 1. Possible right lung base pneumonia. Signer Name: Mignon Valentin MD Signed: 05/31/2019 1:24 AM Workstation Name: [id number]
[2019-05-31 02:39] VITALS: BP 149/89
== END 2019-05-31 02:30 | disposition home or self-care (01) ==
LOC: ED 21:44
DX: J18.9 Pneumonia, unspecified organism (principal); I10 Essential (primary) hypertension; M79.7 Fibromyalgia; Z90.49 Acquired absence of other specified parts of digestive tract; Z79.899 Other long term (current) drug therapy
CPT/HCPCS: 36415; 71046; 82140; 84703; 85025; 87116; 87400; 87430; 93005; 93010

== ENCOUNTER 2021-08-10 09:26 | Emergency (ER) | payer SELFPAY ==
[2021-08-10 09:33] VITALS: BP 120/75
== END 2021-08-10 10:43 | disposition left against medical advice (07) ==
LOC: ED 09:26
DX: H92.09 Otalgia, unspecified ear (principal); Z53.21 Procedure and treatment not carried out due to patient leaving prior to being seen by health care provider